=== PATIENT | male | born 1965 | race Caucasian/White ===

== ENCOUNTER → 2023-12-27 15:08 | Outpatient (REF) | payer BC, SELFPAY | LOC: HWRAD 15:08 | PROVIDERS: ATTENDING PHYSICIAN Family Medicine | DX: M25.572 Pain in left ankle and joints of left foot (principal) | CPT/HCPCS: 73610 ==

== ENCOUNTER 2024-04-01 19:46 | Emergency (ER) | payer BC, SELFPAY ==
[2024-04-01 19:51] VITALS: BP 130/79
[2024-04-01 20:12] LABS: % Basophils 0.5 % (0-2); % Eosinophils 7.3 % (0-6); % Immature Granulocytes 0.6 % (0-0.5); % Lymphocytes 16.4 % (20.5-51.1); % Monocytes 8.9 % (1.7-9.3); % Neutrophils 66.3 % (42.2-75.2); Absolute Basophils 0.1 10^3/uL (0-0.2); Absolute Immature Granulocytes 0.1 10^3/uL (0-0.05); Absolute Lymphocytes 2.2 10^3/uL (1.2-3.4); Absolute Monocytes 1.2 10^3/uL (0.1-0.6); Absolute Neutrophils 8.9 10^3/uL (1.4-6.5); Hematocrit 41.3 % (39.0-52.0); Hemoglobin 14.2 g/dL (13.0-18.0); Mean Corp Hgb Conc. 34.4 g/dL (33.0-37.0); Mean Corpuscular Hgb 28.9 pg (27.0-31.0); Mean Corpuscular Volume 84.1 fL (80.0-94.0); Mean Platelet Volume 8.5 fL (7.4-10.4); Nucleated Red Blood Cells % 0 % (-); Platelet Count 305 10^3/uL (130-400); Red Blood Cell Count 4.91 10^6/uL (4.70-6.10); Red Cell Dist. Width 13.5 % (11.5-14.5); White Blood Cell Count 13.4 10^3/uL (4.8-10.8)
[2024-04-01 20:27] LABS: ALT (SGPT) 31 U/L (0-50); AST (SGOT) 34 U/L (17-59); Albumin 3.9 g/dl (3.5-5.0); Alkaline Phosphatase 68 U/L (38-126); Blood Urea Nitrogen 14 mg/dl (9-20); Calcium 9.4 mg/dl (8.4-10.2); Carbon Dioxide 23 mmol/L (22-30); Chloride 108 mmol/L (98-107); Glucose 105 mg/dl (70-99); Potassium 3.9 mmol/L (3.5-5.1); Sodium 140 mmol/L (135-145); Total Bilirubin 0.6 mg/dl (0.2-1.3); Total Protein 7.5 g/dl (6.3-8.2); eGFR > 60.00
[2024-04-01 20:34] LABS: Troponin I < 0.012 ng/ml
[2024-04-01 21:39] VITALS: BP 137/88
[2024-04-01] MEDS: TORADOL 15 MG IV (21:52)
[2024-04-01 22:00] VITALS: BP 136/87
[2024-04-01] MEDS: VIBRAMYCIN 100 MG PO (23:30)
[2024-04-01] MEDS: AUGMENTIN 875 MG/125 MG 1 TABLET PO (23:30)
[2024-04-01 23:48] LABS: Troponin I < 0.012 ng/ml
--- NOTE | 2024-04-02 02:20 | ED.GENMED ---
History of Present Illness
General
Chief Complaint: Chest Pain
Source: patient and spouse
Exam Limitations: none
Time Seen by Provider: 04/01/24 21:27
Nursing documentation reviewed up to this point in time: agreed with
Travel History
Have you had any contact with someone who has COVID-19?: No
Do you have any symptoms of coronavirus? Fever > 100 degrees, chills, cough, shortness of breath, sore throat, loss of taste or smell, muscle aches, or headache?: No
History of Present Illness
History of Present Illness:
58-year-old male with history as documented presents to the emergency room with his for evaluation of chest pain and shortness of breath. Patient reports that he has had a mild cough for the past few days which has been nonproductive. He says
that this morning he woke up with some pain in the center of his chest that will occasionally radiate towards the left side. He says he has had increased shortness of breath. He says symptoms progressed as the day went on and so he decided to come
to the emergency room to be assessed. He has not had any fevers or chills. He has not had any abdominal pain, nausea, vomiting. No diaphoresis. No palpitations or dizziness. No swelling or pain in the legs. He denies similar symptoms in the
past. Denies any known cardiac history.
Past History
Past History
ED Past Medical History: Other (Rheumatoid Arthritis on Remicade and Methotrexate, Renal calculus)
ED Past Surgical History: None
Social History
Tobacco: Former smoker
Alcohol: None
Personal:
Living: with family
Employment: Not employed
Review of Systems
Review of Systems
All Other Systems: ROS reviewed and negative except as documented in HPI and ROS
Constitutional: Denies fever or chills
EENT: Denies sore throat or runny nose
Respiratory: Reports cough and trouble breathing
Cardiac: Reports chest pain; Denies palpitations or syncope
ABD/GI: Denies abdominal pain, nausea or vomiting
: Denies flank pain
Musculoskeletal: Denies edema, neck pain or back pain
Neurological: Denies headache, weakness or numbness
Phy Exam
Physical Exam
Physical Exam:
General: Awake, alert, oriented x3; no acute distress
Head: Normocephalic, atraumatic
Eyes: Conjunctiva normal, sclera anicteric
Throat: Airway intact, handling secretions
Neck: Trachea midline, supple without meningismus
Lungs: Clear to auscultation bilaterally, no wheezing, rales, rhonchi
Heart: Regular rate and rhythm, no murmurs, gallops, or rubs; he does have some reproducible left parasternal tenderness
Abd: Soft, non distended, nontender
Neuro: Cranial nerves grossly intact, speech fluid
Skin: no rash
Extremities: No edema in extremities, equal pulses in all extremities
Scores
Heart Failure Risk
Heart Failure Risk Score: Not Applicable
Heart Score for Chest Pain Patients
STEMI patient?: No
History: Slightly or Non-Suspicious
ECG: Normal
Age: >45 - <65 years
Risk Factors: 1 or 2 Risk Factors
Troponin: </= Normal Limit
Heart Score for Chest Pain Patients: 2
Heart Score Risk: 2.5% MACE over next 6 weeks
Withdrawal Assessment of Alcohol
Withdrawal Assessment Completed?: Not applicable
Course
Orders/Labs/Results
Orders:
Orders
04/01/24 19:47
Electrocardiogram (*1) Urgent
Reason for Study: Chest Pain
EKG- Treatment ONCE
04/01/24 19:50
Cardiac Monitoring- Treatment ONCE
IV Insert/Care/Rem.- Treatment PRN
CXR2 [CR Chest - 2 Views ] Urgent
Comment:
Reason For Exam: chest pain
04/01/24 20:01
Complete Blood Count/With Diff Urgent
Comprehensive Metabolic Panel Urgent
Troponin I Urgent
04/01/24 21:35
Ketorolac [Toradol] 15 mg IV NOW STA
04/01/24 23:14
Troponin I Urgent
04/01/24 23:19
Amoxicillin 875 mg/Clav 125 mg [Augmentin 875 mg/125 mg] 1 tablet PO NOW STA
Doxycycline [Vibramycin] 100 mg PO NOW STA
Abnormal Lab Results
04/01/24
20:01
WBC 13.4 H 10^3/uL
(4.8-10.8)
Abs Immat Gran (auto) 0.1 H 10^3/uL
(0-0.05)
Absolute Neuts (auto) 8.9 H 10^3/uL
(1.4-6.5)
Absolute Monos (auto) 1.2 H 10^3/uL
(0.1-0.6)
Absolute Eos (auto) 1.0 H 10^3/uL
(0-0.7)
Immature Gran % 0.6 H %
(0-0.5)
Lymphocytes % 16.4 L %
(20.5-51.1)
Eosinophils % 7.3 H %
(0-6)
Chloride 108 H mmol/L
(98-107)
Glucose 105 H mg/dl
(70-99)
04/01/24 20:01
04/01/24 20:01
Vital Signs
Initial and Last Documented VS:
Initial Vital Signs
Temp Pulse Resp BP Pulse Ox
36.5 C 72 18 130/79 99
04/01/24 19:51 04/01/24 19:51 04/01/24 19:51 04/01/24 19:51 04/01/24 19:51
Last Documented Vital Signs
Temp Pulse Resp BP Pulse Ox
36.6 C 62 16 136/87 98
04/01/24 23:49 04/01/24 22:00 04/01/24 22:00 04/01/24 22:00 04/01/24 22:00
MDM/Problems Addressed
Differential Diagnosis Includes:
Pneumonia, bronchitis, pneumothorax, costochondritis, ACS, PE considered less likely clinically
MDM/Problems Addressed:
58-year-old male presents for evaluation of chest pain and shortness of breath all day today and send recent mild cough. Arrives to us with normal vitals including pulse ox of 99% on room air and respiratory rate of 16-18. Physical exam as above.
His EKG shows no STEMI. Plan to place an IV check labs including a CBC and a CMP. Check troponins. Will check a chest x-ray. Will monitor closely on telemetry. Reassess after the above. Will try some Toradol for pain.
Labs reviewed: CBC shows a leukocytosis of 13.4. CMP no clinically significant abnormalities. Initial troponin undetectable. His chest x-ray shows signs consistent with a right lower lobe pneumonia. He did have some improvement in his pain with
Toradol. He had reproducible tenderness in the left side of his chest. I wonder if pneumonia is the source of his cough and dyspnea and perhaps he developed a mild costochondritis with coughing leading to increased pain versus pneumonia as primary
cause for pain as well. Will plan to trend troponin for completeness but will plan to treat with antibiotics for community-acquired pneumonia. I did discuss with the patient potential for admission for treatment versus discharge home�patient
prefers trial of oral antibiotics at home and I think this is reasonable as he has no signs of respiratory compromise and no signs of sepsis. CURB 65 score would be 0.
Repeat troponin is undetectable. Will plan to discharge on Augmentin and doxycycline for community-acquired pneumonia. Patient is very happy with this plan. I did speak to him and his about strict return precautions. All questions were
answered.
Chronic conditions affecting care:
Smoker
*Radiology
Radiology exam reviewed: preliminary read by ED provider and radiology read reviewed
*Pulse Oximetry
Patient hypoxic: no
*EKG
Interpreted by ED Provider?: Yes
Heart Rate: 67
Rate: normal
Rhythm: sinus
Bodfish: normal axis
Interval: normal interval
QRS Pattern: normal QRS
Ischemia: non-specific ST changes
*Critical Care Note
Total Time (30-74mins, 75-104mins- exclusive of procedures): Not Applicable
Data Reviewed
Review of Other/Old Records Reveals: Labs and Records
Source: patient and spouse
Patient Management
Escalation/DeEscalation of care consider admission/obs:
Considered need for admission or observation but after discussion with patient and opted for discharge with oral antibiotics
ED Attending Note
-
Portions of this chart may have been created with voice recognition software.� Occasional wrong word or��sound alike� substitutions may have occurred due to the inherent limitations of voice recognition software.
Discharge Plan
Departure
Patient Disposition: Home (Routine Discharge)
Date of Disposition: 04/02/24
Time of Disposition: 00:01
Patient with high blood pressure during this ER visit?: No
Discharge Problem:
Pneumonia
Instructions: Pneumonia in adults
Prescriptions:
New
amoxicillin-pot clavulanate 875-125 mg tablet
1 tab PO BID 7 Days Qty: 14 0RF
doxycycline hyclate 100 mg tablet
100 mg PO BID 7 Days Qty: 14 0RF
No Action
magnesium oxide 500 MG tablet
500 mg PO QPM Qty: 0
infliximab [Remicade] 100 mg Recon Soln
100 mg IV Q5W
zinc 100 mg Tablet
100 mg PO QPM
therapeutic multivitamin Tablet
1 tab PO QPM
fexofenadine 180 mg Tablet
180 mg PO QPM
omeprazole 20 mg Capsule,Delayed Release(Dr/Ec)
20 mg PO QPM
cholecalciferol (vitamin D3) 125 mcg (5,000 unit) Tablet
125 mcg PO QPM
ascorbic acid (vitamin C) 1,000 mg Tablet
1,000 mg PO QPM
cephalexin 500 mg tablet
1,000 mg PO Q8H 10 Days Qty: 60 0RF
Referrals:
Spike Packer DO [Family Provider] - Follow up in 5-7 days
Activity Restrictions/Additional Instructions:
Thank you for visiting the Emergency Department at [facility].
1. Please schedule a follow up appointment as directed. Call first thing tomorrow morning to make an appointment.
2. If indicated, please take your medications as instructed and indicated on discharge paperwork.
3. If any of your symptoms do not improve, or persist, or become more severe within 6-12 hours, please return to the emergency department for further care.
4. Please return to the emergency department if you develop a headache, neck pain/stiffness, fever greater than 100.4F, chest pain, shortness of breath, persistent nausea, vomiting, slurred speech, difficulty walking, numbness/tingling, weakness,
signs of infection or any other symptoms that are worrisome to you.
Please call [phone] if you have any questions.
Interventions
Interventions:
*Risk Screen - Suicide Last Done: 04/02/24 00:30
*General Assessment Last Done: 04/01/24 19:53
*Neglect/Abuse Screening Last Done: 04/01/24 19:48
*ED COVID-19 Vaccine History Last Done: 04/01/24 19:52
*Nursing Disposition Last Done: 04/02/24 00:30
ED- Cardiac Assessment Last Done: 04/01/24 22:08
Discharge Date and Time
Discharge Date/Time: 04/02/24 00:54
Print Language: GREEK
== END 2024-04-02 00:54 | disposition home or self-care (01) ==
LOC: EMR 19:46
PROVIDERS: Student in an Organized Health Care Education/Training Program; EMERGENCY PHYSICIAN Emergency Medicine; FAMILY PHYSICIAN Family Medicine
DX: J18.9 Pneumonia, unspecified organism (principal); M06.9 Rheumatoid arthritis, unspecified; Z87.442 Personal history of urinary calculi; Z87.891 Personal history of nicotine dependence; Z79.899 Other long term (current) drug therapy
CPT/HCPCS: 99283; 96374; 71046; 80053; 84484; 85025; 93005

== ENCOUNTER → 2024-06-01 13:41 | Outpatient (REF) | payer BC, SELFPAY | LOC: HWRAD 13:41 | PROVIDERS: ATTENDING PHYSICIAN Family Medicine | DX: Z87.01 Personal history of pneumonia (recurrent) (principal) | CPT/HCPCS: 71046 ==

== ENCOUNTER 2025-08-09 10:01 | Outpatient (RCR) | payer BC, SELFPAY | END 2025-08-09 23:59 | disposition home or self-care (01) | LOC: RPT 10:01 | PROVIDERS: ATTENDING PHYSICIAN Nurse Practitioner Family; FAMILY PHYSICIAN Family Medicine | DX: M54.42 Lumbago with sciatica, left side (principal); Z73.6 Limitation of activities due to disability; R26.89 Other abnormalities of gait and mobility | CPT/HCPCS: 97010; 97110; 97140; 97162; 97535 ==

== ENCOUNTER 2025-08-21 09:33 | Outpatient (RCR) | payer BC, SELFPAY | END 2025-08-21 23:59 | disposition home or self-care (01) | LOC: RPT 09:33 | PROVIDERS: ATTENDING PHYSICIAN Nurse Practitioner Family; FAMILY PHYSICIAN Family Medicine | DX: M54.32 Sciatica, left side (principal); Z73.6 Limitation of activities due to disability; R26.89 Other abnormalities of gait and mobility | CPT/HCPCS: 97010; 97110 ==

== ENCOUNTER → 2025-08-23 09:55 | Outpatient (REF) | payer BC, SELFPAY | LOC: HWRAD 09:55 | PROVIDERS: ATTENDING PHYSICIAN Family Medicine | DX: Z87.891 Personal history of nicotine dependence (principal) | CPT/HCPCS: 71271 ==

== ENCOUNTER → 2025-09-13 06:39 | Outpatient (REF) | payer BC, SELFPAY | LOC: RAD 06:39 | PROVIDERS: ATTENDING PHYSICIAN Family Medicine | DX: Z87.891 Personal history of nicotine dependence (principal); Z13.6 Encounter for screening for cardiovascular disorders | CPT/HCPCS: 76770 ==

== ENCOUNTER → 2025-09-27 10:38 | Outpatient (REF) | payer BC, SELFPAY | LOC: RAD 10:38 | PROVIDERS: ATTENDING PHYSICIAN Family Medicine | DX: E78.00 Pure hypercholesterolemia, unspecified (principal); I25.10 Atherosclerotic heart disease of native coronary artery without angina pectoris | CPT/HCPCS: 93880 ==

== ENCOUNTER → 2025-10-24 08:18 | Outpatient (REF) | payer BC, SELFPAY | LOC: RCS 08:18 | PROVIDERS: ATTENDING PHYSICIAN Internal Medicine Cardiovascular Disease; FAMILY PHYSICIAN Family Medicine | DX: I77.810 Thoracic aortic ectasia (principal) | CPT/HCPCS: 93306 ==